=== PATIENT | male | born 1965 | race Caucasian/White ===

== ENCOUNTER 2016-11-04 15:01 | Emergency (ER) | payer OTHER ==
[~2016-11-04] VITALS: Ht 187.9 cm; Wt 97.5 kg
[2016-11-04 15:41] LABS: BASO % 0.4 % (0.0-1.0); EOS # 0.1 10*3/uL (0.0-0.4); EOS % 0.8 % (1.0-4.0); HEMATOCRIT 42.8 % (42.0-52.0); HEMOGLOBIN 15.4 g/dl (14.0-18.0); LYMPH # 1.3 10*3/uL (1.3-4.4); MEAN CELL VOLUME 85.4 fl (80.0-94.0); MEAN CORPUSCULAR HGB 30.7 pg (27.0-31.0); MONO # 1.2 10*3/uL (0.1-1.0); MONO % 11.2 % (3.0-9.0); NEUT # 7.6 10*3/uL (2.3-7.9); NEUT % 74.2 % (47.0-73.0); PLATELET COUNT AUTOMATED 274 10*3/uL (130-400); RED BLOOD COUNT 5.01 10*6/uL (4.50-5.90); WHITE BLOOD COUNT 10.3 10*3/uL (4.8-10.8)
[2016-11-04 15:56] LABS: ALBUMIN 4.5 gm/dl (3.1-4.5); ALKALINE PHOSPHATASE 89 U/L (45-117); BILIRUBIN, TOTAL 0.6 mg/dl (0.2-1.0); BUN 20 mg/dl (7-24); CARBON DIOXIDE 23 mmol/L (21-32); CHLORIDE 106 mmol/L (98-107); EST GLOM FILT AFRICAN AMERICAN > 60 ml/min; GLUCOSE 98 mg/dL (65-99); MAGNESIUM 2.3 mg/dL (1.5-2.1); POTASSIUM 3.9 mmol/L (3.5-5.1); SGOT/AST 21 IU/L (3-35); SGPT/ALT 36 U/L (12-78); SODIUM 140 mmol/L (136-145)
[2016-11-04 16:49] LABS: URINE AMPHETAMINES < 1000 (1000ng/ml); URINE BARBITURATES < 200 (200ng/ml); URINE COCAINE < 300 (300ng/ml)
== END 2016-11-04 16:41 | disposition left against medical advice (07) ==
LOC: ED 15:01
PROVIDERS: Nurse Practitioner Family
DX: G25.3 Myoclonus (principal); R56.9 Unspecified convulsions; E83.41 Hypermagnesemia; R03.0 Elevated blood-pressure reading, without diagnosis of hypertension; Z85.47 Personal history of malignant neoplasm of testis

== ENCOUNTER → 2017-01-04 | Outpatient (CLI) | payer OTHER | END | disposition home or self-care (01) | LOC: MRI 08:38 | DX: S32.000D Wedge compression fracture of unspecified lumbar vertebra, subsequent encounter for fracture with routine healing (principal) ==

== ENCOUNTER 2019-12-22 12:01 | Emergency (ER) | payer SELFPAY ==
[~2019-12-22] VITALS: Ht 187.9 cm; Wt 102.1 kg
== END 2019-12-22 12:38 | disposition home or self-care (01) ==
LOC: ED 12:01
DX: Z02.79 Encounter for issue of other medical certificate (principal)